=== PATIENT | male | born 1950 | race Caucasian/White ===

== ENCOUNTER 2016-09-03 13:12 | Emergency (ER) | payer OTHER ==
[~2016-09-03] VITALS: Ht 157.5 cm; Wt 67.1 kg
[2016-09-03 13:30] VITALS: BP 198/79
[2016-09-03 13:41] LABS: BASO # 0.1 x10^3/uL (0.0-0.2); BASO % 1 % (0-3); EOS % 1 % (0-3); HEMATOCRIT 43.4 % (39.0-53.0); HEMOGLOBIN 14.3 g/dL (13.0-17.5); LYMPH # 1.2 x10^3/uL (1.0-4.8); LYMPH % 14 % (24-48); MEAN CORPUSCULAR HEMOGLOBIN 30 pg (25-35); MEAN CORPUSCULAR HGB CONC 33 g/dL (31-37); MEAN CORPUSCULAR VOLUME 92 fL (79-100); MONO % 7 % (0-9); NEUT % 77 % (31-73); PLATELET COUNT 195 x10^3/uL (140-400); WHITE BLOOD COUNT 8.9 x10^3/uL (4.0-11.0)
--- NOTE | 2016-09-03 14:01 | PHYS DOC ---
Past Medical History Past Medical History: Other Additional Past Medical Histor: AORTIC VALVE REPLACEMENT Past Surgical History: Other Additional Past Surgical Histo: AORTIC VALVE REPLACEMENT, PIG Alcohol Use: Rarely Drug Use: None Adult General Chief Complaint Chief Complaint: CHEST PAIN HPI HPI 66-year-old male presenting to the emergency department today with chest pain this started around an hour and a half ago. He describes the pain as a pressure that is nonradiating and not migrating. He denies it being a ripping tearing pain. He denies it being sudden in onset. He denies it being severe. He describes it as a mild pain that currently is 1 out of 10. He denies unilateral leg swelling hemoptysis personal or family history of blood clotting disorders. 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 Today he took a full dose aspirin. He denies a history of hyperlipidemia , hypertension, diabetes mellitus but does admit to previous smoking history. Review of systems was negative for abdominal pain nausea vomiting diaphoresis. All other review of systems is negative unless otherwise noted in history of present illness. Review of Systems Review of Systems SEE ABOVE. Allergies Allergies Allergies Coded Allergies Type Severity Reaction Last Updated Verified No Known Drug Allergies 09/03/16 No Physical Exam Physical Exam Constitutional: Well developed, well nourished, no acute distress, non-toxic appearance. HENT: Normocephalic, atraumatic, bilateral external ears normal, oropharynx moist, no oral exudates, nose normal. [] Eyes: PERRLA, EOMI, conjunctiva normal, no discharge. Neck: Normal range of motion, no tenderness, supple, no stridor. [] Cardiovascular:Heart rate regular rhythm, no murmur [] Lungs & Thorax: Bilateral breath sounds clear to auscultation Abdomen: Bowel sounds normal, soft, no tenderness, no masses, no pulsatile masses. [] Skin: Warm, dry, no erythema, no rash. Back: No tenderness, no CVA tenderness. [] Extremities: No tenderness, no cyanosis, no clubbing, ROM intact, no edema. [] Neurologic: Alert and oriented X 3, normal motor function, normal sensory function, no focal deficits noted. Psychologic: Affect normal, judgement normal, mood normal. [] Current Patient Data Vital Signs Vital Signs Date Time Temp Pulse Resp B/P Pulse Ox O2 Delivery O2 Flow Rate FiO2 09/03/16 13:30 98.0 83 22 198/79 100 Room Air 98.0 Lab Values Laboratory Tests Test 09/03/16 13:25 White Blood Count 8.9x10^3/uL (4.0-11.0) Red Blood Count 4.70x10^6/uL (4.30-5.70) Hemoglobin 14.3g/dL (13.0-17.5) Hematocrit 43.4% (39.0-53.0) Mean Corpuscular Volume 92fL (79-100) Mean Corpuscular Hemoglobin 30pg (25-35) Mean Corpuscular Hemoglobin Concent 33g/dL (31-37) Red Cell Distribution Width 16.0% (11.5-14.5) H Platelet Count 195x10^3/uL (140-400) Neutrophils (%) (Auto) 77% (31-73) H Lymphocytes (%) (Auto) 14% (24-48) L Monocytes (%) (Auto) 7% (0-9) Eosinophils (%) (Auto) 1% (0-3) Basophils (%) (Auto) 1% (0-3) Neutrophils # (Auto) 6.9x10^3uL (1.8-7.7) Lymphocytes # (Auto) 1.2x10^3/uL (1.0-4.8) Monocytes # (Auto) 0.6x10^3/uL (0.0-1.1) Eosinophils # (Auto) 0.1x10^3/uL (0.0-0.7) Basophils # (Auto) 0.1x10^3/uL (0.0-0.2) Laboratory Tests 09/03/16 13:25 EKG EKG [] EKG shows a sinus rhythm with a regular rate. [place] is leftward. Intervals shows prolonged QRS with right bundle-branch morphology. ST segments are congruent. Not consistent with ischemia. Radiology/Procedures Radiology/Procedures [] Course & Med Decision Making Course & Med Decision Making Pertinent Labs and Imaging studies reviewed. (See chart for details) [] 66-year-old male presenting to the emergency department today with chest pain. Initially the patient's vital signs afebrile with a normal heart rate. Blood pressure was elevated. Labetalol given for blood pressure. EKG unremarkable. Initial blood work unremarkable including a negative troponin. The patient was then signed out to Dr. Nielsen with plans to f/u on repeat trop 3 hours after initial. I offered the patient hospital admission for cardiac rule out which the patient respectfully declined. The patient was then signed out in stable condition at 3 PM. Dragon Disclaimer Dragon Disclaimer This electronic medical record was generated, in whole or in part, using a voice recognition dictation system. Departure Departure Impression: Primary Impression: Chest pain Referrals: NON,STAFF (PCP) PALAK GRANADO MD Patient Instructions: Chest Pain (Nonspecific) Additional Instructions: Thank you for allowing us to participate in your care today. Followup with our airport planner Dr. Granado in 2-3 days. If you do not have a primary care provider you can ask for a list of our primary care providers. Return to the emergency department you have any new or concerning findings. This should be evaluated by the primary care physician and any necessary consulting services for continued management within a few days after discharge. Return to emergency room if you have any new or concerning symptoms including but not limited to fever, chills, nausea, vomiting, intractable pain, any new rashes, chest pain, shortness of air, uncontrolled bleeding, difficulty breathing, and/or vision loss. You may have been prescribed medication that can change in your level of thinking and ability to operate machinery. These medications include hydrocodone and Ativan. Also, Benadryl has been known to do this as well. Be sure to check with your pharmacist and ask if the medications you've prescribed can affect your level of consciousness. I recommend not operating heavy machinery or driving while on medication such as these. Problem Qualifiers Primary Impression: Chest pain Chest pain type: unspecified Qualified Code: R07.9 - Chest pain, unspecified JUNITO MARTINEZ MD Sep 03, 2016 14:01
[2016-09-03 14:05] LABS: CALCIUM 9.1 mg/dL (8.5-10.1); CREATININE 0.9 mg/dL (0.7-1.3); GFR 83.9; POTASSIUM 4.3 mmol/L (3.5-5.1)
[2016-09-03 14:06] LABS: ALBUMIN 3.7 g/dL (3.4-5.0); DIRECT BILIRUBIN 0.2 mg/dL (0.0-0.2); TOTAL BILIRUBIN 0.4 mg/dL (0.2-1.0); TOTAL PROTEIN 7.1 g/dL (6.4-8.2)
--- NOTE | 2016-09-03 14:10 | RAD ---
Indication chest pressure. Single AP view of the chest was obtained. No prior imaging is available. Postoperative changes at the root of the aorta are noted. An acute parenchymal infiltrate is not seen. Significant pleural fluid is not present. There is no pneumothorax. There is a well-defined oval density at the left lung base in the area of the diaphragm probably reflecting focal eventration. Comparison with old films establishing stability advised. No pleural fluid or pneumothorax is seen. IMPRESSION: No acute process seen in the chest. Oval well-defined density adjacent to the left hemidiaphragm. Probably incidental. See above discussion
--- NOTE | 2016-09-03 16:32 | EKG ---
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
== END 2016-09-03 18:27 | disposition home or self-care (01) ==
LOC: ER 13:12
DX: R07.9 Chest pain, unspecified (principal); Z79.82 Long term (current) use of aspirin; Z95.2 Presence of prosthetic heart valve
CPT/HCPCS: 36415; 71010; 80048; 80076; 83690; 83880; 84484; 85027; 93005; 99285-25